=== PATIENT | female | born 1950 | race Caucasian/White ===

== ENCOUNTER → 2017-07-15 | Outpatient (CLI) | payer MEDICARE, OTHER ==
[~2017-07-15] MED LIST: ALLO100T PO; ASP81TEC PO; FOSI40TA PO; FOSI40TA2 PO; HCT25T PO; HUM100VI; HUM100VI14 SC; HYDR-3454 PO; INSU100C4 SQ; INSU100V5 SQ; LISI40TA PO; METF-380 PO; MULT-192 PO; OMEG-160 PO; OMEG1CAP97 PO; PARO10TA3 PO; SIMV40TA2 PO; [UNRECOGNIZED DRUG - CODE] PO
== END ==
LOC: CARD 11:44
PROVIDERS: ATTEND Nurse Practitioner Family
DX: R01.1 Cardiac murmur, unspecified (principal); I07.1 Rheumatic tricuspid insufficiency
CPT/HCPCS: 93306

== ENCOUNTER 2022-04-07 04:55 | Emergency (ER) | payer MEDICARE, OTHER ==
[~2022-04-07] VITALS: Ht 170 cm; Wt 84.0 kg
[~2022-04-07 04:55] MED LIST changes: +ALIVE WOMEN'S1 EACH PO; -FOSI40TA2 PO; +FOSI40TA65 PO; -HYDR-3454 PO; +HYDR-3455 PO; -LISI40TA PO; +LISI40TA9 PO; -[UNRECOGNIZED DRUG - CODE] PO
[2022-04-07] MEDS ORDERED: FOSINOPRIL (05:04)
[2022-04-07] MEDS ORDERED: FURO40TA4 (05:04)
[2022-04-07] MEDS ORDERED: SIMV40TA25 (05:04)
[2022-04-07] MEDS ORDERED: POTASSIUM (05:04)
[2022-04-07] MEDS ORDERED: INSU100I29 (05:04)
[2022-04-07] MEDS ORDERED: VALS160T29 (05:04)
--- NOTE | 2022-04-07 05:15 | ED Cardiac General ---
History of Present Illness General Chief Complaint: Cardiac/General Problems Stated Complaint: IRR HEART RATE Source: patient Exam Limitations: no limitations History of Present Illness Date Seen by Provider: Apr 07, 2022 Time Seen by Provider: 04:59 Initial Comments 71-year-old female with past medical history of diabetes and hypertension most notably coming in due to chest discomfort this been going on for couple of weeks, but now feeling like her heart is "pounding really hard". She denies any real chest pain, shortness of breath, cough, focal weakness or numbness, head ache, vision changes, or any other concerns. She does state her temperature was slightly elevated last night to 100.1 F. She states that she has had some lower extremity swelling for which her PCP started her on Lasix recently which has helped. Denies any redness in her lower extremities or pain. Denies any prior history of DVT or PE, no recent surgery, does not take any hormones, no hemoptysis. Allergies and Home Medications Allergies Coded Allergies: No Known Drug Allergies (Verified Allergy, Unknown, 10/20/08) Patient Home Medication List Home Medication List Reviewed: Yes Allopurinol (Allopurinol) 100 Mg Tablet, 100 MG PO DAILY PRN for GOUT PAIN, (Reported) Entered as Reported by: LINA GARCIA on 09/28/15 1405 Aspirin (Aspirin Ec 81 Mg) 81 Mg Tabec, 81 MG PO HS, (Reported) Entered as Reported by: ENRIQUE JOAQUIN on 10/20/08 1420 Fosinopril Sodium (Fosinopril Sodium) 40 Mg Tablet, 40 MG PO DAILY, (Reported) Entered as Reported by: LINA GARCIA on 09/28/15 1400 Furosemide (Furosemide) 40 Mg Tablet, (Reported) Entered as Reported by: ZARA JUNG on 04/07/22 0504 Last Action: New Order Hydrochlorothiazide (Hctz) 25 Mg Tab, 25 MG PO DAILY, (Reported) Entered as Reported by: ENRIQUE JOAQUIN on 10/20/08 141 Hydrocodone/Acetaminophen (Vicodin 5-300 mg Tablet) 1 Each Tablet, 1 EACH PO Q4H PRN for PAIN Prescribed by: ANDREA DAS on 09/28/152058 Insulin Detemir (Levemir Flextouch) 100 Unit/Ml (3 Ml) Insuln.pen, (Reported) Entered as Reported by: ZARA JUNG on 04/07/22503 Last Action: New Order Insulin Determir (Levemir) 1,000 Units/10 Ml Soln, 50 UNITS SQ HS, (Reported) Entered as Reported by: HARDEEP MULTANI on 09/22/15 152 Insulin Determir (Levemir) 1,000 Units/10 Ml Soln, 23 UNITS SQ DAILY, (Reported) Entered as Reported by: HARDEEP MULTANI on 09/22/15 152 Magnesium Oxide (Magnesium Oxide) 250 Mg Tablet, 250 MG PO QID Prescribed by: TIFFANY VICKERS on 04/07/22 0602 Metformin Hcl (Metformin 1000 Mg) 1,000 Mg Tablet, 1,000 MG PO BID, (Reported) Entered as Reported by: ENRIQUE JOAQUIN on 10/20/08 1420 Multivit-Min/FA/Herbal No.245 (Alive Women's Gummy Vitamins) 1 Each Tab.chew, 1 TAB PO DAILY, (Reported) Entered as Reported by: LINA GARCIA on 09/28/15 1400 [place]-3/Dha/Epa/Fish Oil (Fish Oil 1,000 mg Softgel) 1 Each Capsule, 1,000 MG PO DAILY, (Reported) Entered as Reported by: LINA GARCIA on 09/28/15 1400 Paroxetine HCl (Paroxetine HCl) 10 Mg Tablet, 10 MG PO DAILY, (Reported) Entered as Reported by: LINA GARCIA on 09/28/15 1400 Simvastatin (Zocor) 40 Mg Tablet, 40 MG PO DAILY, (Reported) Entered as Reported by: ENRIQUE JOAQUIN on 10/20/08 1419 Simvastatin (Simvastatin) 40 Mg Tablet, (Reported) Entered as Reported by: ZARA JUNG on 04/07/22503 Last Action: New Order Valsartan (Valsartan) 160 Mg Tablet, (Reported) Entered as Reported by: ZARA JUNG on 04/07/22503 Last Action: New Order [Fosinopril] , (Reported) Entered as Reported by: ZARA JUNG on 04/07/22503 Last Action: New Order [Potassium] , (Reported) Entered as Reported by: ZARA JUNG on 04/07/22503 Last Action: New Order Review of Systems Review of Systems Constitutional: chills EENTM: No Blurred Vision Respiratory: Denies Cough Cardiovascular: Irregular Heart Rate Gastrointestinal: No Symptoms Reported Genitourinary: No Symptoms Reported Musculoskeletal: no symptoms reported Skin: no symptoms reported Psychiatric/Neurological: No Symptoms Reported Endocrine: No Symptoms Reported Hematologic/Lymphatic: No Symptoms Reported Past Bkplfmi-Gbcsbr-Mbolux Hx Patient Social History Tobacco Use?: No Past Medical History Reproductive Disorders: No HIV/AIDS: No Arthritis Diabetes, Insulin dep Breast Adverse Reaction/Blood Tranf: No Family Medical History Diabetes mellitus 19 MOTHER G8 SISTER FH: COPD (chronic obstructive pulmonary disease) 19 FATHER FH: breast cancer 19 MOTHER FH: stroke 19 MOTHER Hypertension 19 MOTHER G8 SISTER Myocardial infarction 19 MOTHER (open heart sx) G8 SISTER (open heart sx) Physical Exam Vital Signs Vital Signs - First Documented 04/07/22 05:05 Temp 35.0 Pulse 85 Resp 17 B/P (MAP) 203/85 (124) Pulse Ox 98 O2 Delivery Room Air Capillary Refill : Height, Weight, BMI Height: 5'7.00" Weight: 184lbs. 0.0oz. 83.682707tt; 30.62 BMI Method: General Appearance: No Apparent Distress, WD/WN HEENT: PERRL/EOMI, Normal ENT Inspection, Pharynx Normal Neck: Full Range of Motion, Normal Inspection, Non Tender, Supple Respiratory: Chest Non Tender, Lungs Clear, Normal Breath Sounds, No Accessory Muscle Use, No Respiratory Distress Cardiovascular: Regular Rate, Rhythm, Normal Peripheral Pulses Gastrointestinal: Normal Bowel Sounds, Non Tender, Soft; No Distended, No Guarding Extremity: Normal Capillary Refill, Normal Inspection, Normal Range of Motion, Non Tender, No Calf Tenderness, Pedal Edema (Trace) Neurologic/Psychiatric: Alert, No Motor/Sensory Deficits, Normal Mood/Affect Skin: Normal Color, Warm/Dry Lymphatic: No Adenopathy Progress/Results/Core Measures Results/Orders Lab Results Laboratory Tests Test 04/07/22 05:18 Range/Units White Blood Count 8.3 4.3-11.0 10^3/uL Red Blood Count 4.08 3.80-5.11 10^6/uL Hemoglobin 12.4 11.5-16.0 g/dL Hematocrit 37 35-52 % Mean Corpuscular Volume 90 80-99 fL Mean Corpuscular Hemoglobin 30 25-34 pg Mean Corpuscular Hemoglobin Concent 34 32-36 g/dL Red Cell Distribution Width 13.1 10.0-14.5 % Platelet Count 164 130-400 10^3/uL Mean Platelet Volume 10.7 9.0-12.2 fL Immature Granulocyte % (Auto) 1 % Neutrophils (%) (Auto) 63 42-75 % Lymphocytes (%) (Auto) 25 12-44 % Monocytes (%) (Auto) 10 0-12 % Eosinophils (%) (Auto) 1 0-10 % Basophils (%) (Auto) 0 0-10 % Neutrophils # (Auto) 5.3 1.8-7.8 10^3/uL Lymphocytes # (Auto) 2.1 1.0-4.0 10^3/uL Monocytes # (Auto) 0.8 0.0-1.0 10^3/uL Eosinophils # (Auto) 0.1 0.0-0.3 10^3/uL Basophils # (Auto) 0.0 0.0-0.1 10^3/uL Immature Granulocyte # (Auto) 0.0 0.0-0.1 10^3/uL Prothrombin Time 12.8 12.2-14.7 SEC INR Comment 0.9 0.8-1.4 Activated Partial Thromboplast Time 40 H 24-35 SEC Sodium Level 139 135-145 MMOL/L Potassium Level 3.8 3.6-5.0 MMOL/L Chloride Level 99 98-107 MMOL/L Carbon Dioxide Level 26 21-32 MMOL/L Anion Gap 14 5-14 MMOL/L Blood Urea Nitrogen 27 H 7-18 MG/DL Creatinine 1.35 H 0.60-1.30 MG/DL Estimat Glomerular Filtration Rate 42 BUN/Creatinine Ratio 20 Glucose Level 105 70-105 MG/DL Calcium Level 9.6 8.5-10.1 MG/DL Corrected Calcium 9.5 8.5-10.1 MG/DL Magnesium Level 1.4 L 1.6-2.4 MG/DL Total Bilirubin 0.5 0.1-1.0 MG/DL Aspartate Amino Transf (AST/SGOT) 22 5-34 U/L Alanine Aminotransferase (ALT/SGPT) 26 0-55 U/L Alkaline Phosphatase 66 40-136 U/L Troponin I < 0.028 <0.028 NG/ML B-Type Natriuretic Peptide 22.8 <100.0 PG/ML Total Protein 7.3 6.4-8.2 GM/DL Albumin 4.1 3.2-4.5 GM/DL Lipase 47 8-78 U/L Influenza Type A (RT-PCR) Not Detected Not Detecte Influenza Type B (RT-PCR) Not Detected Not Detecte SARS-CoV-2 RNA (RT-PCR) Detected H Not Detecte My Orders Orders - TIFFANY VICKERS MD Ekg Tracing (04/07/22 04:58) Cbc With Automated Diff (04/07/22 05:12) Magnesium (04/07/22 05:12) Chest 1 View, Ap/Pa Only (04/07/22 05:12) Ekg Tracing (04/07/22 05:12) Comprehensive Metabolic Panel (04/07/22 05:12) Protime With Inr (04/07/22 05:12) Partial Thromboplastin Time (04/07/22 05:12) O2 (04/07/22 05:12) Monitor-Rhythm Ecg Trace Only (04/07/22 05:12) Ed Iv/Invasive Line Start (04/07/22 05:12) Lipase (04/07/22 05:12) Bnp [place] (04/07/22 05:12) Troponin I [place] (04/07/22 05:12) Influenza A And B By Pcr (04/07/22 05:15) Covid 19 Inhouse Test (04/07/22 05:15) Vital Signs/I&O 04/07/22 05:05 Temp 35.0 Pulse 85 Resp 17 B/P (MAP) 203/85 (124) Pulse Ox 98 O2 Delivery Room Air Progress Progress Note : Progress Note 71-year-old female presenting for vague symptoms, most notably like her heart is beating fast as well as fever last night. ABCs were intact and vitals were stable on presentation. EKG ordered and interpreted by me showing no acute ischemic changes. Chest x-ray ordered and interpreted by me showing normal cardiac silhouette, no pneumonia, no pneumothorax. An IV was placed and basic labs were obtained including cardiac biomarkers. Troponin is negative and given he is having symptoms for quite some time, very unlikely to be ACS related. No clinical signs of a DVT on exam, is not tachycardic, is overall low risk for PE. Further work-up not ordered to rule out PE given it is very unlikely. Flu and COVID testing sent and the COVID test was positive. She also has been on Lasix and her magnesium is slightly low at 1.4. We will start her on some oral supplementation at home. I believe she is otherwise stable for discharge with outpatient follow-up. She was sent home with strict return precautions. Initial ECG Impression Date: Apr 07, 2022 Initial ECG Impression Time: 05:07 Initial ECG Rate: 77 Initial ECG Rhythm: Normal Sinus Comment Narrow QRS, normal axis, no significant ST changes or T wave abnormalities, LVH by aVL criteria Diagnostic Imaging Diagonstic Imaging: Xray (chest) Departure Impression Primary Impression: COVID-19 Additional Impression: Hypomagnesemia Disposition: 01 HOME, SELF-CARE Condition: Stable Departure-Patient Inst. Decision time for Depature: 05:58 Referrals: RICARDO HEREDIA MD (PCP/Family) Primary Care Physician Patient Instructions: COVID-19 ED Add. Discharge Instructions: You do have COVID, please isolate yourself for the next 5 days, and then you can wear a mask for the 5 days after that. Take tylenol as needed for fever. Your magnesium is slightly slow so you will be on a supplement 4 times a day for the next week. This may cause some loose stools. Scripts Magnesium Oxide (Magnesium Oxide) 250 Mg Tablet 250 MG PO QID for 7 Days, #28 TAB Prov: TIFFANY VICKERS MD 04/07/22 TIFFANY VICKERS MD Apr 07, 2022 05:15
[2022-04-07 05:29] LABS: BASOPHILS % (AUTO) 0 % (0-10); EOSINOPHILS # (AUTO) 0.1 10^3/uL (0.0-0.3); EOSINOPHILS % (AUTO) 1 % (0-10); HEMATOCRIT 37 % (35-52); HEMOGLOBIN 12.4 g/dL (11.5-16.0); LYMPHOCYTES # (AUTO) 2.1 10^3/uL (1.0-4.0); LYMPHOCYTES % (AUTO) 25 % (12-44); MEAN CORPUSCULAR HEMOGLOBIN 30 pg (25-34); MEAN CORPUSCULAR HGB CONC 34 g/dL (32-36); MEAN CORPUSCULAR VOLUME 90 fL (80-99); MEAN PLATELET VOLUME 10.7 fL (9.0-12.2); MONOCYTES # (AUTO) 0.8 10^3/uL (0.0-1.0); MONOCYTES % (AUTO) 10 % (0-12); NEUTROPHILS # (AUTO) 5.3 10^3/uL (1.8-7.8); NEUTROPHILS % (AUTO) 63 % (42-75); PLATELET COUNT 164 10^3/uL (130-400); WHITE BLOOD COUNT 8.3 10^3/uL (4.3-11.0)
[2022-04-07 05:35] LABS: ALBUMIN 4.1 GM/DL (3.2-4.5); POTASSIUM 3.8 MMOL/L (3.6-5.0)
[2022-04-07 05:36] LABS: CALCIUM 9.6 MG/DL (8.5-10.1)
[2022-04-07 05:38] LABS: TOTAL PROTEIN 7.3 GM/DL (6.4-8.2)
[2022-04-07 05:39] LABS: BILIRUBIN,TOTAL 0.5 MG/DL (0.1-1.0)
[2022-04-07 05:41] LABS: CREATININE SERUM 1.35 MG/DL (0.60-1.30)
[2022-04-07 05:44] LABS: MAGNESIUM 1.4 MG/DL (1.6-2.4)
[2022-04-07 05:48] LABS: INR 0.9 (0.8-1.4); PROTHROMBIN TIME PATIENT 12.8 SEC (12.2-14.7)
[2022-04-07] MEDS ORDERED: MAGN250T35 PO ×2 (06:02→06:08)
[2022-04-07 06:05] VITALS: BP 178/73
--- NOTE | 2022-04-07 06:10 | Diagnostic Imaging Report ---
INDICATION: Fever, chills, and palpitations. FINDINGS: The lungs are clear. There is no failure, effusion or pneumothorax. No free air beneath the diaphragms. IMPRESSION: Normal upright frontal chest Dictated by: Dictated on workstation # [id number]
== END 2022-04-07 06:08 | disposition home or self-care (01) ==
LOC: EDUNIT# 04:55 → ER 04:57
DX: U07.1 COVID-19 (principal); E83.42 Hypomagnesemia
CPT/HCPCS: 36415; 71045; 80053; 83690; 83735; 83880; 84484; 85025; 85610; 85730; 87636; 93005; 93041

== ENCOUNTER 2022-04-26 09:07 | Emergency (ER) | payer MEDICARE, OTHER ==
[~2022-04-26] VITALS: Ht 170.1 cm; Wt 84.0 kg
[~2022-04-26 09:07] MED LIST changes: +FOSINOPRIL; +FURO40TA4; +INSU100I29; +MAGN250T35 PO; +POTASSIUM; +SIMV40TA25; +VALS160T29
--- NOTE | 2022-04-26 09:42 | ED EENT ---
History of Present Illness General Stated Complaint: NOSEBLEEDS Source: patient History of Present Illness Date Seen by Provider: Apr 26, 2022 Time Seen by Provider: 09:30 Initial Comments PT ARRIVES VIA POV FROM HOME C/O NOSEBLEEDING FROM LEFT NARE SINCE YESTERDAY NO HISTORY OF NOSEBLEEDS PT IS ON 81 MG ASPIRIN, NO OTHER BLOOD THINNERS SHE HAD COVID 3 WEEKS AGO, AND HAS HAD SOME RESIDUAL NASAL CONGESTION SINCE THEN NO SINUS PAIN PT HAS HISTORY OF HTN, BREAST CANCER, GERD. SWITCHED BP MEDICATION 6 WEEKS AGO, TO VALSARTAN AND LASIX + KCL PT STOPPED LASIX AND KCL--DIDN'T LIKE THE WAY IT MADE HER FEEL PCP; DR. HEREDIA Allergies and Home Medications Allergies Coded Allergies: No Known Drug Allergies (Verified , 10/20/08) Patient Home Medication List Allopurinol (Allopurinol) 100 Mg Tablet, 100 MG PO DAILY PRN for GOUT PAIN, (Reported) Entered as Reported by: LINA GARCIA on 09/28/15 1405 Aspirin (Aspirin Ec 81 Mg) 81 Mg Tabec, 81 MG PO HS, (Reported) Entered as Reported by: ENRIQUE JOAQUIN on 10/20/08 1420 Cefuroxime Axetil (Cefuroxime) 500 Mg Tablet, 500 MG PO BID Prescribed by: SIS OJEDA on 04/26/22 1137 Fosinopril Sodium (Fosinopril Sodium) 40 Mg Tablet, 40 MG PO DAILY, (Reported) Entered as Reported by: LINA GARCIA on 09/28/15 1400 Furosemide (Furosemide) 40 Mg Tablet, (Reported) Entered as Reported by: ZARA JUNG on 04/07/22 0504 Hydrochlorothiazide (Hctz) 25 Mg Tab, 25 MG PO DAILY, (Reported) Entered as Reported by: ENRIQUE JOAQUIN on 10/20/08 1419 Hydrocodone/Acetaminophen (Vicodin 5-300 mg Tablet) 1 Each Tablet, 1 EACH PO Q4H PRN for PAIN Prescribed by: ANDREA DAS on 09/28/152058 Insulin Detemir (Levemir Flextouch) 100 Unit/Ml (3 Ml) Insuln.pen, (Reported) Entered as Reported by: ZARA JUNG on 04/07/22 0504 Insulin Determir (Levemir) 1,000 Units/10 Ml Soln, 50 UNITS SQ HS, (Reported) Entered as Reported by: HARDEEP MULTANI on 09/22/15 1522 Insulin Determir (Levemir) 1,000 Units/10 Ml Soln, 23 UNITS SQ DAILY, (Reported) Entered as Reported by: HARDEEP MULTANI on 09/22/15 1522 Magnesium Oxide (Magnesium Oxide) 250 Mg Tablet, 250 MG PO QID Prescribed by: TIFFANY VICKERS on 04/07/22 0608 Metformin Hcl (Metformin 1000 Mg) 1,000 Mg Tablet, 1,000 MG PO BID, (Reported) Entered as Reported by: ENRIQUE JOAQUIN on 10/20/08 1420 Multivit-Min/FA/Herbal No.245 (Alive Women's Gummy Vitamins) 1 Each Tab.chew, 1 TAB PO DAILY, (Reported) Entered as Reported by: LINA GARCIA on 09/28/15 1400 [place]-3/Dha/Epa/Fish Oil (Fish Oil 1,000 mg Softgel) 1 Each Capsule, 1,000 MG PO DAILY, (Reported) Entered as Reported by: LINA GARCIA on 09/28/15 1400 Paroxetine HCl (Paroxetine HCl) 10 Mg Tablet, 10 MG PO DAILY, (Reported) Entered as Reported by: LINA GARCIA on 09/28/15 1400 Simvastatin (Zocor) 40 Mg Tablet, 40 MG PO DAILY, (Reported) Entered as Reported by: ENRIQUE JOAQUIN on 10/20/08 1419 Simvastatin (Simvastatin) 40 Mg Tablet, (Reported) Entered as Reported by: ZARA JUNG on 04/07/22 050 Valsartan (Valsartan) 160 Mg Tablet, (Reported) Entered as Reported by: ZARA JUNG on 04/07/22 050 [Fosinopril] , (Reported) Entered as Reported by: ZARA JUNG on 04/07/22 050 [Potassium] , (Reported) Entered as Reported by: ZARA JUNG on 04/07/22 050 Review of Systems Review of Systems Constitutional: no symptoms reported Nose: see HPI Mouth: no symptoms reported Throat: no symptoms reported Respiratory: no symptoms reported Gastrointestinal: no symptoms reported Musculoskeletal: no symptoms reported Skin: no symptoms reported Neurological: No Symptoms Reported Hematologic/Lymphatic: See HPI; Denies Anemia, Denies Blood Clots, Denies Easy Bleeding, Denies Easy Bruising, Denies Swollen Glands Immunological/Allergic: no symptoms reported Past Nzjdijl-Eewmfb-Ogjzjb Hx Patient Social History Tobacco Use?: No Substance use?: No Alcohol Use?: No Immunizations Up To Date First/Initial COVID19 Vaccinat: X3 Past Medical History Surgery/Hospitalization HX: BILATERAL MASTECTOMY, NECK, APPY, PK, BREAST CA, LYMPHEDEMA, GOUT, DM, HTN, GALLSTONES, RETINOPATHY, HEART MURMER Surgeries: Yes Appendectomy, Breast, Gallbladder Respiratory: No Cardiac: Yes Heart Murmur, Hypertension Neurological: No Reproductive Disorders: No HIV/AIDS: No Genitourinary: No Gastrointestinal: Yes Gastroesophageal Reflux Musculoskeletal: Yes Arthritis, Gout Endocrine: Yes Diabetes, Insulin dep HEENT: Yes (RETINOPATHY) Cancer: Yes Breast Did You Recieve Any Treatments: Yes What Type of Treatment Did You: Surgical Intervention Psychosocial: No Integumentary: No Blood Disorders: No Adverse Reaction/Blood Tranf: No Family Medical History Diabetes mellitus 19 MOTHER G8 SISTER FH: COPD (chronic obstructive pulmonary disease) 19 FATHER FH: breast cancer 19 MOTHER FH: stroke 19 MOTHER Hypertension 19 MOTHER G8 SISTER Myocardial infarction 19 MOTHER (open heart sx) G8 SISTER (open heart sx) Physical Exam Vital Signs Vital Signs - First Documented 04/26/22 09:10 Temp 36.3 Pulse 82 Resp 18 B/P (MAP) 139/89 (106) Pulse Ox 99 Height, Weight, BMI Height: 5'7.00" Weight: 184lbs. 0.0oz. 83.256704dg; 29.00 BMI Method: General Appearance: WD/WN, no apparent distress Nose: active bleeding (FROM LEFT NARE) Mouth/Throat: normal mouth inspection, pharynx normal, other (NO BLOOD IN P OSTERIOR PHARYNX) Neck: normal inspection Cardiovascular: regular rate, rhythm Respiratory: normal breath sounds Neurologic/Psychiatric: physical aerodynamicist II-XII nml as tested, no motor/sensory deficits, alert, oriented x 3 Skin: normal color, warm/dry Procedures/Interventions Nasal : Nasal Location: Right Clots Cleared from Nasal: Patient Blowing Inspection with: Otoscope Nasal Procedures: Rapid Rhino Progress 5.5 CM RAPID RHINO INSERTED, WITH CONTROL OF BLEEDING PT OBSERVED IN ER, NO FURTHER BLEEDING AND NO BLOOD IN POSTERIOR PHARYNX Progress/Results/Core Measures Results/Orders Lab Results Laboratory Tests Test 04/26/22 09:35 Range/Units White Blood Count 6.7 4.3-11.0 10^3/uL Red Blood Count 3.67 L 3.80-5.11 10^6/uL Hemoglobin 11.0 L 11.5-16.0 g/dL Hematocrit 33 L 35-52 % Mean Corpuscular Volume 90 80-99 fL Mean Corpuscular Hemoglobin 30 25-34 pg Mean Corpuscular Hemoglobin Concent 33 32-36 g/dL Red Cell Distribution Width 13.7 10.0-14.5 % Platelet Count 173 130-400 10^3/uL Mean Platelet Volume 10.7 9.0-12.2 fL Immature Granulocyte % (Auto) 0 % Neutrophils (%) (Auto) 76 H 42-75 % Lymphocytes (%) (Auto) 17 12-44 % Monocytes (%) (Auto) 6 0-12 % Eosinophils (%) (Auto) 0 0-10 % Basophils (%) (Auto) 0 0-10 % Neutrophils # (Auto) 5.1 1.8-7.8 10^3/uL Lymphocytes # (Auto) 1.1 1.0-4.0 10^3/uL Monocytes # (Auto) 0.4 0.0-1.0 10^3/uL Eosinophils # (Auto) 0.0 0.0-0.3 10^3/uL Basophils # (Auto) 0.0 0.0-0.1 10^3/uL Immature Granulocyte # (Auto) 0.0 0.0-0.1 10^3/uL Percent Immature Platelet Fraction 3.6 0.0-7.6 % Prothrombin Time 13.6 12.2-14.7 SEC INR Comment 1.0 0.8-1.4 Activated Partial Thromboplast Time 24 24-35 SEC Sodium Level 141 135-145 MMOL/L Potassium Level 4.2 3.6-5.0 MMOL/L Chloride Level 104 98-107 MMOL/L Carbon Dioxide Level 23 21-32 MMOL/L Anion Gap 14 5-14 MMOL/L Blood Urea Nitrogen 25 H 7-18 MG/DL Creatinine 0.93 0.60-1.30 MG/DL Estimat Glomerular Filtration Rate 66 BUN/Creatinine Ratio 27 Glucose Level 155 H 70-105 MG/DL Calcium Level 9.3 8.5-10.1 MG/DL Corrected Calcium 9.5 8.5-10.1 MG/DL Total Bilirubin 0.4 0.1-1.0 MG/DL Aspartate Amino Transf (AST/SGOT) 30 5-34 U/L Alanine Aminotransferase (ALT/SGPT) 23 0-55 U/L Alkaline Phosphatase 71 40-136 U/L Total Protein 7.2 6.4-8.2 GM/DL Albumin 3.8 3.2-4.5 GM/DL My Orders Orders - SIS OJEDA DO Cbc With Automated Diff (04/26/22 09:29) Comprehensive Metabolic Panel (04/26/22 09:29) Protime With Inr (04/26/22 09:29) Partial Thromboplastin Time (04/26/22 09:29) Ed Iv/Invasive Line Start (04/26/22 09:29) Monitor-Rhythm Ecg Trace Only (04/26/22 09:29) Hydralazine Injection (Apresoline Inject (04/26/22 10:45) Clonidine Tablet (Catapres Tablet) (04/26/22 11:15) Medications Given in ED Current Medications Medications Dose Ordered Sig/Dusty Route Start Time Stop Time Status Last Admin Dose Admin Clonidine HCl 0.1 mg ONCE ONCE PO 04/26/22 11:15 04/26/22 11:16 DC 04/26/22 11:14 0.1 MG Vital Signs/I&O 04/26/22 09:10 Temp 36.3 Pulse 82 Resp 18 B/P (MAP) 139/89 (106) Pulse Ox 99 Progress Progress Note : Progress Note BP REMAINS ELEVATED, GIVEN CLONIDINE PRIOR TO DISMISSAL, PT STATES SHE HAS BEEN USING ALOT OF AFRIN EVERY DAY, SINCE AROUND Departure Impression Primary Impression: Epistaxis Additional Impression: Uncontrolled hypertension Disposition: HOME, SELF-CARE Condition: Improved Departure-Patient Inst. Referrals: MARGO LAM MD, HOLLY A MD (PCP/Family) Primary Care Physician Patient Instructions: Nosebleeds ED, DASH Diet, High Blood Pressure (DC), Humidifiers Add. Discharge Instructions: LEAVE NASAL PACKING IN PLACE DO NOT BLOW OR RUB NOSE YOU MAY TAKE TYLENOL NEEDED FOR PAIN HUMIDIFY THE AIR IN YOUR HOME. FOLLOW UP WITH DR. LAM, ENT, FOR YOUR NOSEBLEED--CALL HIS OFFICE TODAY TO SCHEDULE A FOLLOW UP APPOINTMENT FOLLOW UP WITH YOUR PRIMARY CARE PHYSICIAN FOR FURTHER TREATMENT OF HIGH BLOOD PRESSURE--CALL TODAY TO SCHEDULE A FOLLOW UP APPOINTMENT. Scripts Cefuroxime Axetil (Cefuroxime) 500 Mg Tablet 500 MG PO BID, #20 TAB Prov: SIS OJEDA DO 04/26/22 SIS OJEDA DO Apr 26, 2022 09:42
[2022-04-26 09:48] LABS: BASOPHILS % (AUTO) 0 % (0-10); EOSINOPHILS % (AUTO) 0 % (0-10); LYMPHOCYTES # (AUTO) 1.1 10^3/uL (1.0-4.0)
[2022-04-26 09:50] LABS: HEMATOCRIT 33 % (35-52); LYMPHOCYTES % (AUTO) 17 % (12-44); MEAN CORPUSCULAR HEMOGLOBIN 30 pg (25-34); MEAN CORPUSCULAR HGB CONC 33 g/dL (32-36); MEAN CORPUSCULAR VOLUME 90 fL (80-99); MEAN PLATELET VOLUME 10.7 fL (9.0-12.2); MONOCYTES # (AUTO) 0.4 10^3/uL (0.0-1.0); MONOCYTES % (AUTO) 6 % (0-12); NEUTROPHILS # (AUTO) 5.1 10^3/uL (1.8-7.8); NEUTROPHILS % (AUTO) 76 % (42-75); PLATELET COUNT 173 10^3/uL (130-400); WHITE BLOOD COUNT 6.7 10^3/uL (4.3-11.0)
[2022-04-26 10:15] LABS: ALBUMIN 3.8 GM/DL (3.2-4.5); BILIRUBIN,TOTAL 0.4 MG/DL (0.1-1.0); CALCIUM 9.3 MG/DL (8.5-10.1); CREATININE SERUM 0.93 MG/DL (0.60-1.30); POTASSIUM 4.2 MMOL/L (3.6-5.0); TOTAL PROTEIN 7.2 GM/DL (6.4-8.2)
[2022-04-26 10:24] LABS: PROTHROMBIN TIME PATIENT 13.6 SEC (12.2-14.7)
[2022-04-26] MEDS ORDERED: hydrALAZINE (APESOLINE) 20 MG/ML VIAL IV ONE (10:45)
[2022-04-26] MEDS: cloNIDine 0.1 MG (CATAPRES) TAB PO ONE (11:14)
[2022-04-26] MEDS ORDERED: CEFU500T63 PO (11:37)
[2022-04-26 12:05] VITALS: BP 178/79
== END 2022-04-26 12:05 | disposition home or self-care (01) ==
LOC: EDUNIT# 09:07 → ER 09:09
DX: R04.0 Epistaxis (principal); I10 Essential (primary) hypertension; E11.9 Type 2 diabetes mellitus without complications; Z79.4 Long term (current) use of insulin; Z86.16 Personal history of COVID-19; Z79.82 Long term (current) use of aspirin
CPT/HCPCS: 30901; 36415; 80053; 85025; 85610; 85730; 93041

== ENCOUNTER 2022-05-21 11:10 | Emergency (ER) | payer MEDICARE, OTHER ==
[~2022-05-21] VITALS: Ht 170.2 cm; Wt 85.3 kg
[~2022-05-21 11:10] MED LIST changes: -AMLO-251 PO
--- NOTE | 2022-05-21 11:31 | ED General ---
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 She had a blood pressure as high as 228/84. She had for blood pressure reading and was sent to the ER for elevated blood pressure. Only complaint is that she has had intermittent shakiness. She believes this is secondary to anxiety. She also reports when she goes to doctors offices her blood pressure typically reads high. She had an increase of her valsartan to 320 mg daily around 3 weeks ago. She is a type II diabetic. She she denies history of coronary artery disease, COPD or asthma. She was of being evaluated for heart murmur with cardiology. She denies weakness, short of breath, headache, dizziness or lightheadedness. Allergies and Home Medications Allergies Coded Allergies: No Known Drug Allergies (Verified , 10/20/08) Patient Home Medication List Home Medication List Reviewed: Yes Allopurinol (Allopurinol) 100 Mg Tablet, 100 MG PO DAILY PRN for GOUT PAIN, (Reported) Entered as Reported by: LINA GARCIA on 09/28/15 1405 Amlodipine Besylate (Amlodipine Besylate) 10 Mg Tablet, 10 MG PO DAILY Prescribed by: MELANI RODRIGUEZ on 05/21/22 1353 Aspirin (Aspirin Ec 81 Mg) 81 Mg Tabec, 81 MG PO HS, (Reported) Entered as Reported by: ENRIQUE JOAQUIN on 10/20/08 1420 Cefuroxime Axetil (Cefuroxime) 500 Mg Tablet, 500 MG PO BID Prescribed by: SIS OJEDA on 04/26/22 1137 Fosinopril Sodium (Fosinopril Sodium) 40 Mg Tablet, 40 MG PO DAILY, (Reported) Entered as Reported by: LINA GARCIA on 09/28/15 1400 Furosemide (Furosemide) 40 Mg Tablet, (Reported) Entered as Reported by: ZARA JUNG on 04/07/22 0504 Hydrochlorothiazide (Hctz) 25 Mg Tab, 25 MG PO DAILY, (Reported) Entered as Reported by: ENRIQUE JOAQUIN on 10/20/08 1419 Hydrocodone/Acetaminophen (Vicodin 5-300 mg Tablet) 1 Each Tablet, 1 EACH PO Q4H PRN for PAIN Prescribed by: ANDREA DAS on 09/28/152058 Insulin Detemir (Levemir Flextouch) 100 Unit/Ml (3 Ml) Insuln.pen, (Reported) Entered as Reported by: ZARA JUNG on 04/07/22 050 Insulin Determir (Levemir) 1,000 Units/10 Ml Soln, 50 UNITS SQ HS, (Reported) Entered as Reported by: HARDEEP MULTANI on 09/22/15 152 Insulin Determir (Levemir) 1,000 Units/10 Ml Soln, 23 UNITS SQ DAILY, (Reported) Entered as Reported by: HARDEEP MULTANI on 09/22/15 152 Magnesium Oxide (Magnesium Oxide) 250 Mg Tablet, 250 MG PO QID Prescribed by: TIFFANY VICKERS on 04/07/22 0608 Metformin Hcl (Metformin 1000 Mg) 1,000 Mg Tablet, 1,000 MG PO BID, (Reported) Entered as Reported by: ENRIQUE JOAQUIN on 10/20/08 1420 Multivit-Min/FA/Herbal No.245 (Alive Women's Gummy Vitamins) 1 Each Tab.chew, 1 TAB PO DAILY, (Reported) Entered as Reported by: LINA GARCIA on 09/28/15 1400 [place]-3/Dha/Epa/Fish Oil (Fish Oil 1,000 mg Softgel) 1 Each Capsule, 1,000 MG PO DAILY, (Reported) Entered as Reported by: LINA GARCIA on 09/28/15 1400 Paroxetine HCl (Paroxetine HCl) 10 Mg Tablet, 10 MG PO DAILY, (Reported) Entered as Reported by: LINA GARCIA on 09/28/15 1400 Simvastatin (Zocor) 40 Mg Tablet, 40 MG PO DAILY, (Reported) Entered as Reported by: ENRIQUE JOAQUIN on 10/20/08 1419 Simvastatin (Simvastatin) 40 Mg Tablet, (Reported) Entered as Reported by: ZARA JUNG on 04/07/22 050 Valsartan (Valsartan) 160 Mg Tablet, (Reported) Entered as Reported by: ZARA JUNG on 04/07/22 050 [Fosinopril] , (Reported) Entered as Reported by: ZARA JUNG on 04/07/22 0504 [Potassium] , (Reported) Entered as Reported by: ZARA JUNG on 04/07/224 Review of Systems Review of Systems Constitutional: No chills, No diaphoresis, No fever, No malaise EENTM: No ear pain, No blurred vision, No double vision Respiratory: No cough, No dyspnea on exertion Cardiovascular: No chest pain Gastrointestinal: No abdominal pain, No diarrhea, No nausea, No vomiting Genitourinary: No decreased output, No discharge Musculoskeletal: No back pain, No joint pain Skin: No change in color, No change in hair/nails All Other Systems Reviewed Negative Unless Noted: Yes Past [facility]-[place]vv[facility] Hx Immunizations Up To Date First/Initial COVID19 Vaccinat: 2020 Second COVID19 Vaccination [place]: 2020 Third COVID19 Vaccination Date: 2021 Past Medical History Surgery/Hospitalization HX: BILATERAL MASTECTOMY, NECK, APPY, PK, BREAST CA, LYMPHEDEMA, GOUT, DM, HTN, GALLSTONES, RETINOPATHY, HEART MURMER Surgeries: Yes Appendectomy, Breast, Gallbladder Respiratory: No Cardiac: Yes Heart Murmur, Hypertension Neurological: No Reproductive Disorders: No HIV/AIDS: No Genitourinary: No Gastrointestinal: Yes Gastroesophageal Reflux Musculoskeletal: Yes Arthritis, Gout Endocrine: Yes Diabetes, Insulin dep HEENT: Yes (RETINOPATHY) Cancer: Yes Breast Did You Recieve Any Treatments: Yes What Type of Treatment Did You: Surgical Intervention Psychosocial: No Integumentary: No Blood Disorders: No Adverse Reaction/Blood Tranf: No Family Medical History Diabetes mellitus 19 MOTHER G8 SISTER FH: COPD (chronic obstructive pulmonary disease) 19 FATHER FH: breast cancer 19 MOTHER FH: stroke 19 MOTHER Hypertension 19 MOTHER G8 SISTER Myocardial infarction 19 MOTHER (open heart sx) G8 SISTER (open heart sx) Physical Exam Vital Signs Vital Signs - First Documented 05/21/22 11:15 Temp 36.6 Pulse 72 Resp 18 B/P (MAP) 198/92 (127) Pulse Ox 100 O2 Delivery Room Air Capillary Refill : Height, Weight, BMI Height: 5'7.00" Weight: 184lbs. 0.0oz. 83.353262qc; 29.00 BMI Method: General Appearance: No Apparent Distress, WD/WN Eyes: Bilateral Eye Normal Inspection, Bilateral Eye PERRL, Bilateral Eye EOMI HEENT: PERRL/EOMI, TMs Normal, Normal ENT Inspection, Pharynx Normal Neck: Full Range of Motion, Normal Inspection, Non Tender, Supple Respiratory: Chest Non Tender, Lungs Clear, Normal Breath Sounds, No Accessory Muscle Use, No Respiratory Distress Cardiovascular: Regular Rate, Rhythm, No Edema, No Gallop, No JVD Gastrointestinal: Normal Bowel Sounds, No Organomegaly, No Pulsatile Mass, Non Tender Back: Normal Inspection, No CVA Tenderness Extremity: Normal Capillary Refill, Normal Inspection, Normal Range of Motion Neurologic/Psychiatric: Alert, Oriented x3, No Motor/Sensory Deficits, Normal 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, 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 as Tested Skin: Normal Color, Warm/Dry Progress/Results/Core Measures Suspected Sepsis SIRS Temperature: Pulse: Respiratory Rate: Laboratory Tests 05/21/22 11:45: White Blood Count 8.0 Blood Pressure / Mean: Laboratory Tests 05/21/22 11:45: Creatinine 0.85, Platelet Count 160, Total Bilirubin 0.3 Results/Orders Lab Results Laboratory Tests Test 05/21/22 11:45 05/21/22 13:00 Range/Units White Blood Count 8.0 4.3-11.0 10^3/uL Red Blood Count 3.78 L 3.80-5.11 10^6/uL Hemoglobin 11.2 L 11.5-16.0 g/dL Hematocrit 34 L 35-52 % Mean Corpuscular Volume 91 80-99 fL Mean Corpuscular Hemoglobin 30 25-34 pg Mean Corpuscular Hemoglobin Concent 33 32-36 g/dL Red Cell Distribution Width 13.4 10.0-14.5 % Platelet Count 160 130-400 10^3/uL Mean Platelet Volume 11.1 9.0-12.2 fL Immature Granulocyte % (Auto) 0 % Neutrophils (%) (Auto) 76 H 42-75 % Lymphocytes (%) (Auto) 17 12-44 % Monocytes (%) (Auto) 5 0-12 % Eosinophils (%) (Auto) 1 0-10 % Basophils (%) (Auto) 1 0-10 % Neutrophils # (Auto) 6.1 1.8-7.8 10^3/uL Lymphocytes # (Auto) 1.4 1.0-4.0 10^3/uL Monocytes # (Auto) 0.4 0.0-1.0 10^3/uL Eosinophils # (Auto) 0.1 0.0-0.3 10^3/uL Basophils # (Auto) 0.0 0.0-0.1 10^3/uL Immature Granulocyte # (Auto) 0.0 0.0-0.1 10^3/uL Sodium Level 141 135-145 MMOL/L Potassium Level 4.1 3.6-5.0 MMOL/L Chloride Level 105 98-107 MMOL/L Carbon Dioxide Level 22 21-32 MMOL/L Anion Gap 14 5-14 MMOL/L Blood Urea Nitrogen 17 7-18 MG/DL Creatinine 0.85 0.60-1.30 MG/DL Estimat Glomerular Filtration Rate 74 BUN/Creatinine Ratio 20 Glucose Level 131 H 70-105 MG/DL Calcium Level 9.8 8.5-10.1 MG/DL Corrected Calcium 9.9 8.5-10.1 MG/DL Magnesium Level 1.3 L 1.6-2.4 MG/DL Total Bilirubin 0.3 0.1-1.0 MG/DL Aspartate Amino Transf (AST/SGOT) 24 5-34 U/L Alanine Aminotransferase (ALT/SGPT) 18 0-55 U/L Alkaline Phosphatase 76 40-136 U/L Troponin I < 0.028 <0.028 NG/ML B-Type Natriuretic Peptide 36.1 <100.0 PG/ML Total Protein 7.1 6.4-8.2 GM/DL Albumin 3.9 3.2-4.5 GM/DL Urine Color YELLOW Urine Clarity CLEAR Urine pH 6.0 5-9 Urine Specific [place] 1.010 L 1.016-1.022 Urine Protein 3+ H NEGATIVE Urine Glucose (UA) NEGATIVE NEGATIVE Urine Ketones NEGATIVE NEGATIVE Urine Nitrite NEGATIVE NEGATIVE Urine Bilirubin NEGATIVE NEGATIVE Urine Urobilinogen 0.2 < = 1.0 MG/DL Urine Leukocyte Esterase NEGATIVE NEGATIVE Urine RBC (Auto) TRACE-I H NEGATIVE Urine RBC RARE /HPF Urine WBC RARE /HPF Urine Crystals PRESENT H /LPF Urine Amorphous Sediment RARE FERMIN URATES H /LPF Urine Bacteria NEGATIVE /HPF Urine Casts NONE /LPF Urine Mucus NEGATIVE /LPF Urine Culture Indicated NO My Orders Orders - TIFFANY BUCK Cbc With Automated Diff (05/21/22 11:27) Comprehensive Metabolic Panel (05/21/22 11:27) Troponin I [place] (05/21/22 11:27) Bnp [place] (05/21/22 11:27) Chest 1 View, Ap/Pa Only (05/21/22 11:27) Ekg Tracing (05/21/22 11:27) Hydralazine Injection (Apresoline Inject (05/21/22 12:15) Urinalysis (05/21/22 12:53) Labetalol Injection (Normodyne Injection (05/21/22 13:00) Magnesium (05/21/22 13:13) Magnesium Oxide Tablet (Mag Ox Tablet) (05/21/22 13:45) Magnesium Oxide Tablet (Mag Ox Tablet) (05/21/22 13:41) Amlodipine Tablet (Norvasc Tablet) (05/21/22 14:00) Medications Given in ED Current Medications Medications Dose Ordered Sig/Dusty Route Start Time Stop Time Status Last Admin Dose Admin Amlodipine Besylate 10 mg ONCE ONCE PO 05/21/22 14:00 05/21/22 14:01 DC 05/21/22 13:57 10 MG Hydralazine HCl 10 mg ONCE ONCE IV 05/21/22 12:15 05/21/22 12:16 DC 05/21/22 12:13 10 MG Labetalol HCl 10 mg ONCE ONCE IV 05/21/22 13:00 05/21/22 13:02 DC 05/21/22 13:08 10 MG Magnesium Oxide 400 mg ONCE ONCE PO 05/21/22 13:45 05/21/22 13:46 DC 05/21/22 13:42 400 MG Vital Signs/I&O 05/21/22 11:15 Temp 36.6 Pulse 72 Resp 18 B/P (MAP) 198/92 (127) Pulse Ox 100 O2 Delivery Room Air Capillary Refill : ECG Comment Sinus rhythm with marked sinus arrhythmia, borderline left axis deviation, 70 bpm, QRS duration 86 MS, QTc 430 MS Departure Communication (PCP) Patient presents to ED from Dr. Mejia office for elevated blood pressure. History of hypertension, diabetes. She is currently asymptomatic. She states she did feel shaky today unclear if this was secondary to anxiety or her blood pressure. She does have a history of hypomagnesia and with her last blood work in March noted 1.4 magnesium. Currently taken 1 tablet 400 mg magnesium daily. Due to the shakiness and to rule out atypical chest pain CBC, CMP, troponin, magnesium was drawn. Differential diagnosis of uncontrolled hypertension, hypertensive emergency, hypertensive urgency, anxiety, kidney di sease, ACS, CHF. Patient CBC, CMP was otherwise unremarkable besides a magnesium of 1.3. Patient Was given 1 dose of oral magnesium. Patient blood pressure read 198/92. Normal kidney function. She is concern for bubbly urine. Urinalysis was negative for infection but did note protein. Discussed likely secondary to the diabetes versus the high blood pressure. Reassuring kidney function. She was given initially IV hydralazine 10mg and 10 mg of labetalol with the blood pressure as low as 171/89. Due to the continued elevated blood pressure without significant improvement of valsartan 320 mg, I discussed patient with primary care physician Dr. Raymond who is on-call for Dr. HEREDIA this week. Recommend starting amlodipine 10 mg and follow-up in the office this week with the nurse practitioners to recheck blood pressure. She was given a dose of amlodipine before discharge. Patient is currently asymptomatic with reassuring lab work patient will be discharged. Discussed importance of improving blood pressure to prevent CHF, coronary artery disease, stroke, kidney disease. She acknowledges. Return precautions were discussed with patient such as developing chest pain, shortness of breath, severe head pain. Impression Primary Impression: Uncontrolled hypertension Additional Impression: Hypomagnesemia Disposition: 01 HOME, SELF-CARE Condition: Stable Departure-Patient Inst. Decision time for Depature: 13:52 Referrals: RICARDO HEREDIA MD (PCP/Family) Primary Care Physician Patient Instructions: High Blood Pressure (DC) Scripts Amlodipine Besylate (Amlodipine Besylate) 10 Mg Tablet 10 MG PO DAILY, #30 TAB Prov: TIFFANY BUCK 05/21/22 TIFFANY BUCK May 21, 2022 11:31
[2022-05-21 11:53] LABS: BASOPHILS % (AUTO) 1 % (0-10); EOSINOPHILS # (AUTO) 0.1 10^3/uL (0.0-0.3); EOSINOPHILS % (AUTO) 1 % (0-10); HEMATOCRIT 34 % (35-52); HEMOGLOBIN 11.2 g/dL (11.5-16.0); LYMPHOCYTES # (AUTO) 1.4 10^3/uL (1.0-4.0); LYMPHOCYTES % (AUTO) 17 % (12-44); MEAN CORPUSCULAR HEMOGLOBIN 30 pg (25-34); MEAN CORPUSCULAR HGB CONC 33 g/dL (32-36); MEAN CORPUSCULAR VOLUME 91 fL (80-99); MEAN PLATELET VOLUME 11.1 fL (9.0-12.2); MONOCYTES # (AUTO) 0.4 10^3/uL (0.0-1.0); MONOCYTES % (AUTO) 5 % (0-12); NEUTROPHILS # (AUTO) 6.1 10^3/uL (1.8-7.8); NEUTROPHILS % (AUTO) 76 % (42-75); PLATELET COUNT 160 10^3/uL (130-400)
[2022-05-21 12:04] LABS: ALBUMIN 3.9 GM/DL (3.2-4.5); CHLORIDE 105 MMOL/L (98-107); POTASSIUM 4.1 MMOL/L (3.6-5.0); SODIUM 141 MMOL/L (135-145)
[2022-05-21 12:06] LABS: CALCIUM 9.8 MG/DL (8.5-10.1)
[2022-05-21 12:07] LABS: GLUCOSE 131 MG/DL (70-105); TOTAL PROTEIN 7.1 GM/DL (6.4-8.2)
[2022-05-21 12:08] LABS: CARBON DIOXIDE 22 MMOL/L (21-32)
[2022-05-21 12:09] LABS: BILIRUBIN,TOTAL 0.3 MG/DL (0.1-1.0)
[2022-05-21 12:10] LABS: ALKALINE PHOSPHATASE 76 U/L (40-136); CREATININE SERUM 0.85 MG/DL (0.60-1.30); GFR ESTIMATED 74
[2022-05-21 12:11] LABS: BUN/CREATININE RATIO 20
[2022-05-21 12:13] LABS: ALANINE AMINOTRANSFERASE 18 U/L (0-55)
[2022-05-21] MEDS ORDERED: hydrALAZINE (APESOLINE) 20 MG/ML VIAL IV ONE (12:15)
--- NOTE | 2022-05-21 12:38 | Diagnostic Imaging Report ---
EXAMINATION: Chest radiograph, portable AP view. DATE: 05/21/2022 11:58 AM. INDICATION: 71-year-old female, shortness of breath. COMPARISON: April 07, 2022. FINDINGS: There is cervical spine hardware. The heart size and mediastinal contours are unchanged. There is no identified pneumothorax. There is no large pleural effusion. There is no identified focal airspace consolidation. There is chondrocalcinosis. IMPRESSION: No identified acute cardiopulmonary abnormality. Dictated by: Dictated on workstation # [id number]
[2022-05-21] MEDS ORDERED: LABETALOL HCL 20 MG/4 ML VIAL IV ONE (13:00)
[2022-05-21 13:12] LABS: BILIRUBIN,URINE NEGATIVE (NEGATIVE); CLARITY,URINE CLEAR; COLOR,URINE YELLOW; GLUCOSE, URINE (UA) NEGATIVE (NEGATIVE); KETONES,URINE NEGATIVE (NEGATIVE); LEUKOCYTE ESTERASE ,URINE NEGATIVE (NEGATIVE); NITRITE,URINE NEGATIVE (NEGATIVE); PROTEIN,URINE 3+ (NEGATIVE)
[2022-05-21 13:27] LABS: AMORPHOUS SEDIMENT,UR RARE AMOR URATES /LPF; BACTERIA,URINE NEGATIVE /HPF; RBC,URINE RARE /HPF; WBC,URINE RARE /HPF
[2022-05-21] MEDS ORDERED: MAGNESIUM OXIDE (MAG-OX)400 MG TAB ONE (13:41)
[2022-05-21] MEDS ORDERED: MAGNESIUM OXIDE (MAG-OX)400 MG TAB PO ONE (13:45)
[2022-05-21] MEDS ORDERED: AMLO-251 PO (13:53)
[2022-05-21] MEDS ORDERED: amLODIPine 10 MG (NORVASC) TAB PO ONE (14:00)
[2022-05-21 14:10] VITALS: BP 170/75
== END 2022-05-21 14:10 | disposition home or self-care (01) ==
LOC: EDUNIT# 11:10 → ER 11:12
DX: I10 Essential (primary) hypertension (principal); E83.42 Hypomagnesemia; Z79.899 Other long term (current) drug therapy
CPT/HCPCS: 36415; 71045; 80053; 81000; 83735; 83880; 84484; 85025; 93005

== ENCOUNTER → 2022-05-21 | Outpatient (CLI) | payer MEDICARE, OTHER ==
[~2022-05-21] MED LIST changes: +AMLO-251 PO; +CEFU500T63 PO
== END ==
LOC: CARD 05-14 09:43
PROVIDERS: ATTEND Family Medicine
DX: R01.1 Cardiac murmur, unspecified (principal)
CPT/HCPCS: 93306

== ENCOUNTER 2022-05-26 16:24 | Emergency (ER) | payer MEDICARE, OTHER ==
[~2022-05-26] VITALS: Ht 170 cm; Wt 85.2 kg
[~2022-05-26 16:24] MED LIST changes: +AMLO-251 PO
--- NOTE | 2022-05-26 16:55 | ED Cardiac General ---
History of Present Illness General Stated Complaint: HEART PALPITATIONS Source: patient, old records History of Present Illness Date Seen by Provider: May 26, 2022 Time Seen by Provider: 16:41 Initial Comments PT ARRIVES VIA POV FROM HOME PT STATES "IT'S BEEN GOING ON FOR QUITE AWHILE"--AT LEAST 6 MONTHS OR MORE STATES "I GOT FLUSHED" "MY HEART STARTED BEATING FAST"--STATES SHE CHECKED HER PULSE AND IT WAS IN THE 80'S STATES "I JUST QUIVER AND I CAN'T MAKE MYSELF QUIT" "I JUST CAN'T RELAX" PT NEVER CHECKS HER BLOOD PRESSURE AT HOME NO CHEST PAIN NO SHORTNESS OF BREATH NO SWEATS NO DIZZINESS OR SYNCOPE NO NAUSEA/VOMITING NO CHANGE IN CHRONIC LEG SWELLING--STATES SHE WAS PRESCRIBED LASIX AND KCL, BUT THOUGHT THAT IT WAS CAUSING HER TO "BREAK OUT" SO SHE STOPPED TAKING IT IN DECEMBER. SHE STATES SHE BEEN PRESCRIBED ANXIETY MEDICATION IN THE PAST, BUT NEVER TOOK IT--"I WAS AFRAID TO" SHE HAD AN OUTPATIENT ECHOCARDIOGRAM ON SATURDAY FOR HEART MURMUR, AND BP WAS >200 AT THE TIME, SO PT WAS SENT TO ER SHE WAS SENT HOME WITH PRESCRIPTION FOR AMLODIPINE AND ADVISED TO FOLLOW UP WITH DR. HEREDIA NEXT WEEK ( SHE HAS BEEN OUT OF THE OFFICE THIS WEEK). SHE HAS NOT SEEN DR. HEREDIA SINCE LAST DECEMBER. 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 SHE HAS NOT CHECKED HER SUGAR TODAY. SHE WAS HERE 04/26/22 FOR NOSEBLEED, AND PT WAS NOTED TO BE HYPERTENSIVE AT THAT TIME, AND SHE HAD REPORTED AT THAT TIME THAT SHE WAS STARTED ON VALSARTAN AND LASIX + KCL 6 WEEKS PRIOR BUT SHE HAD STOPPED THE LASIX AND KCL ON HER OWN. SHE WAS ADVISED AT THAT TIME TO FOLLOW UP WITH DR. HEREDIA, WHICH SHE HAS NOT DONE. PCP: DR. HEREDIA Allergies and Home Medications Allergies Coded Allergies: No Known Drug Allergies (Verified , 10/20/08) Patient Home Medication List Home Medication List Reviewed: Yes Allopurinol (Allopurinol) 100 Mg Tablet, 100 MG PO DAILY PRN for GOUT PAIN, (Reported) Entered as Reported by: LINA GARCIA on 09/28/15 7295 Amlodipine Besylate (Amlodipine Besylate) 10 Mg Tablet, 10 MG PO DAILY Prescribed by: MELANI RODRIGUEZ on 05/21/22 1353 Aspirin (Aspirin Ec 81 Mg) 81 Mg Tabec, 81 MG PO HS, (Reported) Entered as Reported by: ENRIQUE JOAQUIN on 10/20/08 1420 Cefuroxime Axetil (Cefuroxime) 500 Mg Tablet, 500 MG PO BID Prescribed by: SIS OJEDA on 04/26/22 1137 Fosinopril Sodium (Fosinopril Sodium) 40 Mg Tablet, 40 MG PO DAILY, (Reported) Entered as Reported by: LINA GARCIA on 09/28/15 1400 Furosemide (Furosemide) 40 Mg Tablet, (Reported) Entered as Reported by: ZARA JUNG on 04/07/22 0504 Hydrochlorothiazide (Hctz) 25 Mg Tab, 25 MG PO DAILY, (Reported) Entered as Reported by: ENRIQUE JOAQUIN on 10/20/08 1419 Hydrocodone/Acetaminophen (Vicodin 5-300 mg Tablet) 1 Each Tablet, 1 EACH PO Q4H PRN for PAIN Prescribed by: ANDREA DAS on 09/28/152058 Insulin Detemir (Levemir Flextouch) 100 Unit/Ml (3 Ml) Insuln.pen, (Reported) Entered as Reported by: ZARA JUNG on 04/07/22 0504 Insulin Determir (Levemir) 1,000 Units/10 Ml Soln, 50 UNITS SQ HS, (Reported) Entered as Reported by: HARDEEP MULTANI on 09/22/15 1522 Insulin Determir (Levemir) 1,000 Units/10 Ml Soln, 23 UNITS SQ DAILY, (Reported) Entered as Reported by: HARDEEP MULTANI on 09/22/15 1522 Lorazepam (Ativan) 1 Mg Tablet, 1 MG PO TID PRN for ANXIETY Prescribed by: SIS OJEDA on 05/26/22 1829 Magnesium Oxide (Magnesium Oxide) 250 Mg Tablet, 250 MG PO QID Prescribed by: TIFFANY VICKERS on 04/07/22 0608 Metformin Hcl (Metformin 1000 Mg) 1,000 Mg Tablet, 1,000 MG PO BID, (Reported) Entered as Reported by: ENRIQUE JOAQUIN on 10/20/08 1420 Multivit-Min/FA/Herbal No.245 (Alive Women's Gummy Vitamins) 1 Each Tab.chew, 1 TAB PO DAILY, (Reported) Entered as Reported by: LINA GARCIA on 09/28/15 1400 [place]-3/Dha/Epa/Fish Oil (Fish Oil 1,000 mg Softgel) 1 Each Capsule, 1,000 MG PO DAILY, (Reported) Entered as Reported by: LINA GARCIA on 09/28/15 1400 Paroxetine HCl (Paroxetine HCl) 10 Mg Tablet, 10 MG PO DAILY, (Reported) Entered as Reported by: LINA GARCIA on 09/28/15 1400 Simvastatin (Zocor) 40 Mg Tablet, 40 MG PO DAILY, (Reported) Entered as Reported by: ENRIQUE JOAQUIN on 10/20/08 1419 Simvastatin (Simvastatin) 40 Mg Tablet, (Reported) Entered as Reported by: ZARA JUNG on 04/07/22503 Valsartan (Valsartan) 160 Mg Tablet, (Reported) Entered as Reported by: ZARA JUNG on 04/07/22503 [Fosinopril] , (Reported) Entered as Reported by: ZARA JUNG on 04/07/22503 [Potassium] , (Reported) Entered as Reported by: ZARA JUNG on 04/07/22503 Review of Systems Review of Systems Constitutional: see HPI EENTM: No Symptoms Reported Respiratory: No Symptoms Reported; Denies Shortness of Air Cardiovascular: See HPI; Denies Chest Pain; Edema; Denies Lightheadedness; Palpitations Gastrointestinal: No Symptoms Reported Genitourinary: No Symptoms Reported Musculoskeletal: other (CHRONIC LEG SWELLING) Skin: no symptoms reported Psychiatric/Neurological: See HPI, Anxiety Endocrine: No Symptoms Reported Hematologic/Lymphatic: No Symptoms Reported Past Hygxpdb-Vdcmnh-Nsrdty Hx Patient Social History Tobacco Use?: No Substance use?: No Alcohol Use?: No Immunizations Up To Date First/Initial COVID19 Vaccinat: 2020 Second COVID19 Vaccination [place]: 2020 Third COVID19 Vaccination Date: 2021 Past Medical History Surgery/Hospitalization HX: BILATERAL MASTECTOMY, NECK, APPY, PK, BREAST CA, LYMPHEDEMA, GOUT, DM2, HTN, GALLSTONES, RETINOPATHY, HEART MURMER Surgeries: Yes Appendectomy, Breast, Gallbladder, Orthopedic Respiratory: No Cardiac: Yes Heart Murmur, Hypertension Neurological: No 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 HIV/AIDS: No Genitourinary: No Gastrointestinal: Yes Gastroesophageal Reflux, Gall Bladder Disease Musculoskeletal: Yes (C-SPINE SURGERY) Arthritis, Gout Endocrine: Yes Diabetes, Insulin dep HEENT: Yes (RETINOPATHY) Cancer: Yes Breast Did You Recieve Any Treatments: Yes What Type of Treatment Did You: Surgical Intervention Psychosocial: Yes Anxiety Integumentary: No Blood Disorders: No Adverse Reaction/Blood Tranf: No Family Medical History Diabetes mellitus 19 MOTHER G8 SISTER FH: COPD (chronic obstructive pulmonary disease) 19 FATHER FH: breast cancer 19 MOTHER FH: stroke 19 MOTHER Hypertension 19 MOTHER G8 SISTER Myocardial infarction 19 MOTHER (open heart sx) G8 SISTER (open heart sx) Physical Exam Vital Signs Vital Signs - First Documented 05/26/22 17:05 Temp 37.0 Pulse 85 Resp 19 B/P (MAP) 213/77 (122) Pulse Ox 99 O2 Delivery Room Air Capillary Refill : Height, Weight, BMI Height: 5'7.00" Weight: 184lbs. 0.0oz. 83.099285mt; 29.00 BMI Method: General Appearance: Anxious, Obese, Other (PT IS EXTREMELY ANXIOUS AND TALKS NON-STOP. 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- XII Norm as Tested Skin: Normal Color, Warm/Dry Progress/Results/Core Measures Results/Orders Lab Results Laboratory Tests Test 05/26/22 16:45 Range/Units White Blood Count 6.9 4.3-11.0 10^3/uL Red Blood Count 3.79 L 3.80-5.11 10^6/uL Hemoglobin 11.2 L 11.5-16.0 g/dL Hematocrit 34 L 35-52 % Mean Corpuscular Volume 89 80-99 fL Mean Corpuscular Hemoglobin 30 25-34 pg Mean Corpuscular Hemoglobin Concent 33 32-36 g/dL Red Cell Distribution Width 13.3 10.0-14.5 % Platelet Count 188 130-400 10^3/uL Mean Platelet Volume 11.3 9.0-12.2 fL Immature Granulocyte % (Auto) 0 % Neutrophils (%) (Auto) 64 42-75 % Lymphocytes (%) (Auto) 27 12-44 % Monocytes (%) (Auto) 7 0-12 % Eosinophils (%) (Auto) 2 0-10 % Basophils (%) (Auto) 0 0-10 % Neutrophils # (Auto) 4.4 1.8-7.8 10^3/uL Lymphocytes # (Auto) 1.8 1.0-4.0 10^3/uL Monocytes # (Auto) 0.5 0.0-1.0 10^3/uL Eosinophils # (Auto) 0.2 0.0-0.3 10^3/uL Basophils # (Auto) 0.0 0.0-0.1 10^3/uL Immature Granulocyte # (Auto) 0.0 0.0-0.1 10^3/uL Prothrombin Time 13.6 12.2-14.7 SEC INR Comment 1.0 0.8-1.4 Activated Partial Thromboplast Time 40 H 24-35 SEC D-Dimer 0.75 H 0.00-0.49 UG/ML Sodium Level 140 135-145 MMOL/L Potassium Level 4.8 3.6-5.0 MMOL/L Chloride Level 105 98-107 MMOL/L Carbon Dioxide Level 21 21-32 MMOL/L Anion Gap 14 5-14 MMOL/L Blood Urea Nitrogen 32 H 7-18 MG/DL Creatinine 1.29 0.60-1.30 MG/DL Estimat Glomerular Filtration Rate 45 BUN/Creatinine Ratio 25 Glucose Level 287 H 70-105 MG/DL Calcium Level 9.9 8.5-10.1 MG/DL Corrected Calcium 9.7 8.5-10.1 MG/DL Magnesium Level 1.7 1.6-2.4 MG/DL Total Bilirubin 0.3 0.1-1.0 MG/DL Aspartate Amino Transf (AST/SGOT) 21 5-34 U/L Alanine Aminotransferase (ALT/SGPT) 21 0-55 U/L Alkaline Phosphatase 91 40-136 U/L Total Creatine Kinase 154 29-168 U/L Creatine Kinase MB 1.8 <6.6 NG/ML Myoglobin 45.9 10.0-92.0 NG/ML Troponin I < 0.028 <0.028 NG/ML B-Type Natriuretic Peptide 39.9 <100.0 PG/ML Total Protein 7.9 6.4-8.2 GM/DL Albumin 4.3 3.2-4.5 GM/DL TSH [place] Testing 2.40 0.35-4.94 UIU/ML My Orders Orders - SIS OJEDA DO Ed Iv/Invasive Line Start (05/26/22 16:40) Ekg Tracing (05/26/22 16:40) O2 (05/26/22 16:40) Monitor-Rhythm Ecg Trace Only (05/26/22 16:40) Chest 1 View, Ap/Pa Only (05/26/22 16:40) Bnp Murtaza (05/26/22 16:40) Cbc With Automated Diff (05/26/22 16:40) Comprehensive Metabolic Panel (05/26/22 16:40) Creatine Kinase (05/26/22 16:40) Creatine Kinase Mb (05/26/22 16:40) Fibrin Degradation Products (05/26/22 16:40) Magnesium (05/26/22 16:40) Protime With Inr (05/26/22 16:40) Partial Thromboplastin Time (05/26/22 16:40) Thyroid Analyzer (05/26/22 16:40) Myoglobin Serum (05/26/22 16:40) Troponin I [place] (05/26/22 16:40) Lorazepam Injection (Ativan Injection) (05/26/22 17:00) Labetalol Injection (Normodyne Injection (05/26/22 17:00) Ct Angio Chest W (R/O Pe) (05/26/22 17:34) Ed Iv/Invasive Line Start (05/26/22 17:35) Ns Iv 1000 Ml (Sodium Chloride 0.9%) (05/26/22 17:45) Iohexol Injection (Omnipaque 350 Mg/Ml 1 (05/26/22 17:45) Ns (Ivpb) (Sodium Chloride 0.9% Ivpb Bag (05/26/22 17:45) Medications Given in ED Vital Signs/I&O 05/26/22 05/26/22 17:05 18:38 Temp 37.0 Pulse 85 65 Resp 19 18 B/P (MAP) 213/77 (122) 137/66 Pulse Ox 99 94 O2 Delivery Room Air Room Air Progress Progress Note : Progress Note GIVEN: -ATIVAN -LABETALOL SIGNIFICANT IMPROVEMENT IN SYMPTOMS, AND BP DOWN TO 140'S/90, HR IN 70'S. NO LONGER FLUSHED AND PT IS MUCH CALMER. VITALS AT DISMISSAL 137/66, HR 68. PT IS SYMPTOM-FREE AT DISMISSAL. REVIEWED PRIOR RECORDS, INCLUDING ER VISITS, TESTS/PROCEDURES, ADMITS, H&P'S, CONSULTS AND DISCHARGE SUMMARIES DISCUSSED TEST RESULTS, ANTICIPATED COURSE, NEED FOR FOLLOW UP AND RETURN PRECAUTIONS PT FEELS COMFORTABLE GOING HOME Initial ECG Impression Date: May 26, 2022 Initial ECG Impression Time: 16:52 Initial ECG Rate: 86 Initial ECG Rhythm: Normal Sinus Initial ECG Impression: Nonspecific Changes Initial ECG Comparisson: Unchanged Comment INTERPRETED BY ME Diagnostic Imaging Comments CXR--PER RADIOLOGIST REPORT AT 1722 FINDINGS: Single view chest shows a normal heart, pleura and diaphragms. There is some background chronic parenchymal changes. No consolidations are seen. There is no effusion or pneumothorax. Soft tissues and bony thorax are grossly normal. IMPRESSION: Senescent chest with some chronic parenchymal changes but no evidence of acute cardiopulmonary disease. CT CHEST ANGIOGRAM--PER RADIOLOGIST REPORT AT 1824 INDICATION: Elevated D-dimer, palpitations. Patient has a history of breast cancer. FINDINGS: There are no intraluminal pulmonary arterial filling defects. There is no finding of pulmonary arterial embolus. Thoracic aorta patent, nonaneurysmal and nonacute. There is no pleural or pericardial effusion. There is a small hiatal hernia. No finding of pulmonary edema or consolidating pneumonia. No suspicious nodule or dominant lung mass. There is no thoracic lymphadenopathy or suspicious bony lesion. No chest wall mass or fluid collection. The visible upper abdomen shows no acute finding. IMPRESSION: No PE or acute aortic pathology. No finding of metastatic disease or other acute abnormality. Reviewed: Reviewed by Me Departure Impression Primary Impression: Uncontrolled hypertension Additional Impressions: Anxiety CHRONIC LEG EDEMA Diabetes mellitus, insulin dependent (IDDM), uncontrolled Disposition: 01 HOME, SELF-CARE Condition: Improved Departure-Patient Inst. Decision time for Depature: 18:26 Referrals: RICARDO HEREDIA MD (PCP/Family) Primary Care Physician Patient Instructions: Anxiety, Adult ED, Carb Counting for Adults With Diabetes, Controlling Your Blood Pressure Through Lifestyle, DASH Diet, High Blood Pressure (DC) Add. Discharge Instructions: CONTINUE YOUR AMLODIPINE AND VALSARTAN AND HCTZ PRESCRIBED, WELL ALL YOUR OTHER ROUTINE MEDICATIONS PRESCRIBED FOLLOW UP WITH DR. HEREDIA NEXT WEEK FOR FURTHER CARE--CALL ON SATURDAY TO SCHEDULE AN APPOINTMENT. Scripts Lorazepam (Ativan) 1 Mg Tablet 1 MG PO TID PRN for ANXIETY, #10 TAB Prov: SIS OJEDA DO 05/26/22 SIS OJEDA DO May 26, 2022 16:55
[2022-05-26] MEDS ORDERED: LABETALOL HCL 20 MG/4 ML VIAL IV ONE (17:00)
[2022-05-26] MEDS ORDERED: LORazepam INJ 2 MG/ML (ATIVAN) VIAL IVP ONE (17:00)
[2022-05-26 17:06] LABS: BASOPHILS % (AUTO) 0 % (0-10); EOSINOPHILS # (AUTO) 0.2 10^3/uL (0.0-0.3); EOSINOPHILS % (AUTO) 2 % (0-10); HEMATOCRIT 34 % (35-52); HEMOGLOBIN 11.2 g/dL (11.5-16.0); LYMPHOCYTES # (AUTO) 1.8 10^3/uL (1.0-4.0); LYMPHOCYTES % (AUTO) 27 % (12-44); MEAN CORPUSCULAR HEMOGLOBIN 30 pg (25-34); MEAN CORPUSCULAR HGB CONC 33 g/dL (32-36); MEAN CORPUSCULAR VOLUME 89 fL (80-99); MEAN PLATELET VOLUME 11.3 fL (9.0-12.2); MONOCYTES # (AUTO) 0.5 10^3/uL (0.0-1.0); MONOCYTES % (AUTO) 7 % (0-12); NEUTROPHILS # (AUTO) 4.4 10^3/uL (1.8-7.8); NEUTROPHILS % (AUTO) 64 % (42-75); PLATELET COUNT 188 10^3/uL (130-400); WHITE BLOOD COUNT 6.9 10^3/uL (4.3-11.0)
[2022-05-26 17:16] LABS: ALBUMIN 4.3 GM/DL (3.2-4.5); CHLORIDE 105 MMOL/L (98-107); POTASSIUM 4.8 MMOL/L (3.6-5.0); SODIUM 140 MMOL/L (135-145)
[2022-05-26 17:18] LABS: CALCIUM 9.9 MG/DL (8.5-10.1)
--- NOTE | 2022-05-26 17:18 | Diagnostic Imaging Report ---
INDICATION: 71-year-old female with heart palpitations. COMPARISONS: 05/21/2022. FINDINGS: Single view chest shows a normal heart, pleura and diaphragms. There is some background chronic parenchymal changes. No consolidations are seen. There is no effusion or pneumothorax. Soft tissues and bony thorax are grossly normal. IMPRESSION: Senescent chest with some chronic parenchymal changes but no evidence of acute cardiopulmonary disease. Dictated by: Dictated on workstation # [id number]
[2022-05-26 17:19] LABS: GLUCOSE 287 MG/DL (70-105); TOTAL PROTEIN 7.9 GM/DL (6.4-8.2)
[2022-05-26 17:20] LABS: CARBON DIOXIDE 21 MMOL/L (21-32); FIBRIN DEGRADATION PRODUCTS 0.75 UG/ML (0.00-0.49); PROTHROMBIN TIME PATIENT 13.6 SEC (12.2-14.7)
[2022-05-26 17:21] LABS: BILIRUBIN,TOTAL 0.3 MG/DL (0.1-1.0)
[2022-05-26 17:22] LABS: ALKALINE PHOSPHATASE 91 U/L (40-136); CREATININE SERUM 1.29 MG/DL (0.60-1.30); GFR ESTIMATED 45
[2022-05-26 17:23] LABS: BUN/CREATININE RATIO 25
[2022-05-26 17:25] LABS: ALANINE AMINOTRANSFERASE 21 U/L (0-55); MAGNESIUM 1.7 MG/DL (1.6-2.4)
[2022-05-26 17:26] LABS: CREATINE KINASE 154 U/L (29-168)
[2022-05-26 17:33] LABS: CREATINE KINASE MB 1.8 NG/ML (<6.6)
[2022-05-26] MEDS ORDERED: NS 100 ML (IVPB) BAG IV ONE (17:45)
[2022-05-26] MEDS ORDERED: NS IV 1000 ML 1,000 ML IV SCH (17:45)
[2022-05-26] MEDS ORDERED: IOHEXOL 350 MG/ML 100 ML (OMNIPAQUE 350) VIAL IV ONE (17:45)
--- NOTE | 2022-05-26 18:16 | Diagnostic Imaging Report ---
INDICATION: Elevated D-dimer, palpitations. Patient has a history of breast cancer. FINDINGS: There are no intraluminal pulmonary arterial filling defects. There is no finding of pulmonary arterial embolus. Thoracic aorta patent, nonaneurysmal and nonacute. There is no pleural or pericardial effusion. There is a small hiatal hernia. No finding of pulmonary edema or consolidating pneumonia. No suspicious nodule or dominant lung mass. There is no thoracic lymphadenopathy or suspicious bony lesion. No chest wall mass or fluid collection. The visible upper abdomen shows no acute finding. IMPRESSION: No PE or acute aortic pathology. No finding of metastatic disease or other acute abnormality. Dictated by: Dictated on workstation # [id number]
[2022-05-26] MEDS ORDERED: LORA-405 PO (18:29)
[2022-05-26 18:38] VITALS: BP 137/66
== END 2022-05-26 18:50 | disposition home or self-care (01) ==
LOC: EDUNIT# 16:24 → ER 16:27
DX: I10 Essential (primary) hypertension (principal); F41.9 Anxiety disorder, unspecified; R60.0 Localized edema; E11.319 Type 2 diabetes mellitus with unspecified diabetic retinopathy without macular edema; T50.996A Underdosing of other drugs, medicaments and biological substances, initial encounter; Z79.4 Long term (current) use of insulin; Z91.128 Patient's intentional underdosing of medication regimen for other reason; Z79.899 Other long term (current) drug therapy
CPT/HCPCS: 36415; 71045; 71275; 80053; 82550; 82553; 83735; 83874; 83880; 84443; 84484; 85025; 85379; 85610; 85730; 93005; 93041

== ENCOUNTER → 2022-06-22 | Outpatient (CLI) | payer MEDICARE, OTHER ==
[~2022-06-22] MED LIST changes: -INSU100I29; +INSU100I30; +LORA-405 PO
--- NOTE | 2022-06-22 12:11 | Diagnostic Imaging Report ---
HEEL, RIGHT, 2 VIEWS INDICATION: Pain and swelling COMPARISON: None available. TECHNIQUE: 2 views of the right calcaneus. FINDINGS: Marked thickening of the distal Achilles shadows with multiple areas of intrinsic mineralization that is most indicative of calcific tendinosis. There is likely superimposed tear given the soft tissue stranding in the pre-Achilles fat pad. Large plantar and dorsal calcaneal spurs. No acute fracture. Severe vascular calcifications. Degenerative arthritis is noted at the talonavicular and talar cuneiform articulations. IMPRESSION: 1. Calcific tendinitis of the Achilles with probable superimposed tear. MRI of the ankle without contrast could be performed for more sensitive assessment for tendon tear. Dictated by: Dictated on workstation # [id number]
--- NOTE | 2022-06-22 12:40 | Diagnostic Imaging Report ---
US RIGHT LOW EXT NONVASC [id number] INDICATION: Posterior ankle pain COMPARISON: None available. TECHNIQUE: Targeted ultrasound imaging of the posterior lower leg was performed. FINDINGS: A moderate amount of subcutaneous edema is present. A normal-appearing Achilles cannot be identified on this exam. No loculated fluid collection that would suggest hematoma. IMPRESSION: 1. This exam cannot exclude tear of Achilles tendon, as it is not adequately imaged. 2. MRI of the ankle without contrast would provide more sensitive assessment. Dictated by: Dictated on workstation # [id number]
== END ==
LOC: RAD 11:22
PROVIDERS: ATTEND Nurse Practitioner Family
DX: M76.61 Achilles tendinitis, right leg (principal); M25.561 Pain in right knee
CPT/HCPCS: 73650; 76881

== ENCOUNTER → 2022-06-26 | Outpatient (CLI) | payer MEDICARE, OTHER | LOC: CARD 09:23 | PROVIDERS: ATTEND Internal Medicine | DX: R00.2 Palpitations (principal) | CPT/HCPCS: 93225; 93226 ==

== ENCOUNTER 2022-07-05 05:29 | Outpatient (CLI) | payer MEDICARE, OTHER ==
[~2022-07-05] VITALS: Ht 165.1 cm; Wt 82.3 kg
[2022-07-05] MEDS ORDERED: UBID100C17 PO (14:08)
[2022-07-05] MEDS ORDERED: MV-M1TAB57 PO (14:08)
[2022-07-05] MEDS ORDERED: AMLO-251 PO (14:08)
[2022-07-05] MEDS ORDERED: MAGN500T PO (14:08)
[2022-07-05] MEDS ORDERED: SIMV40TA25 PO (14:08)
[2022-07-05] MEDS ORDERED: ESCI-2 PO (14:08)
[2022-07-05] MEDS ORDERED: METF-399 PO (14:08)
[2022-07-05] MEDS ORDERED: IRBE300T17 PO (14:08)
[2022-07-05] MEDS ORDERED: HYDR25TA4 PO (14:08)
== END 2022-07-05 14:11 | disposition home or self-care (01) ==
LOC: PREOP 05:29
PROVIDERS: ATTEND Internal Medicine
DX: Z01.818 Encounter for other preprocedural examination (principal)

== ENCOUNTER 2022-07-13 08:20 | Day surgery (SDC) | payer MEDICARE, OTHER ==
--- NOTE | 2022-07-04 15:18 | HISTORY AND PHYSICAL ---
PANENDOSCOPY SUMMARY HISTORY OF PRESENT ILLNESS: The patient is a 72-year-old white female who was noted to have a 2.7 gram drop in her hemoglobin from 12.8 to 10.1 compared to six months earlier. She reports that she had a couple episodes of epistaxis, one that caused her to go to the emergency room, where they were able to get it under control in mid May. At that time, her hemoglobin was 11.2. When she was seen in our office several weeks later, she was down to 10.1. She reports fatigue, but is not noting any GI symptoms. Denying dysphagia, reflux symptoms, abdominal pain, melena or any significant bright red blood per rectum. Occasionally, she will note blood on the toilet paper when she wipes that she has attributed to hemorrhoids, nothing that she has seen mixed in with stool. She had been taking a baby aspirin, but discontinued this following her emergency room visit. It was for primary prevention. PAST MEDICAL HISTORY: Significant for type 2 diabetes insulin requiring, hypertension and hyperlipidemia with no known history for vascular disease. She did have questions about an echo that had been done by another provider. We had a copy of it, it was unremarkable except pulmonary artery pressure was estimated at 45-50 mmHg with normal right atrial and right ventricular chamber dimensions and function. She has had no chest pain, shortness of breath, lower extremity swelling or discomfort. PHYSICAL EXAMINATION: GENERAL: Reveals a white female, appeared to be in no acute distress. VITAL SIGNS: Her weight was down 4 pounds to 181, blood pressure 154/64. HEENT: Except for mild pallor unremarkable. Sclerae nonicteric. CHEST: Clear. CARDIOVASCULAR: Reveals regular rate and rhythm with a soft I to II/ systolic ejection murmur heard best at left lower sternal border and second right intercostal space. No diastolic murmurs noted. No S3 or S4 noted. ABDOMEN: Soft, supple without mass, organomegaly, or tenderness. EXTREMITIES: Revealed no cyanosis, clubbing or edema. ASSESSMENT AND PLAN: 1. The patient is being set up for anemia considering recent aspirin usage, occasional nonsteroidal usage, increasing her risk for silent peptic ulcer disease. Prep instructions were given and questions were answered. We will cut her evening Levemir to 30 units from 48 units just the night before her colonoscopy and have her hold her morning dose of Levemir until she gets home. 2. Isolated elevated pulmonic pressure as estimated on an echo. We did discuss commonly this was an issue with how the measurement was obtained. I will review the films and see if they are overestimating her pulmonary pressure considering her lack of shortness of breath and no evidence for right heart failure on the echo or by exam. Job ID: [id number] DocumentID: [id number] Dictated Date: 07/04/2022 14:15:40 Linter Drier Operator Date: 07/04/2022 14:58:00 Dictated By: MORENA HENDRICKSON MD
[~2022-07-13] VITALS: Ht 165 cm; Wt 82.3 kg
[~2022-07-13 08:20] MED LIST changes: +ESCI-2 PO; +HYDR25TA4 PO; +IRBE300T17 PO; +MAGN500T PO; +METF-399 PO; +MV-M1TAB57 PO; +SIMV40TA25 PO; +UBID100C17 PO
[2022-07-13] MEDS ORDERED: LACTATED RINGERS 1,000 ML IV STA (08:29)
[2022-07-13] MEDS ORDERED: HURRICAINE EXT TUBE (BENZOCAINE) XX PRN (08:30)
--- NOTE | 2022-07-13 08:34 | Pre-Op Note & Conscious Sedat ---
Pre-Operative Progress Note Date H&P Reviewed: July 13, 2022 Time H&P Reviewed: 08:33 History & Physical: H&P Reviewed, Patient Examed, No changes noted Pre-Op Diagnosis: Fe deficiency anemia rectal bleeding Moderate Sedation PreProcedure ASA Score 2 Airway Lungs Heart ASA score ASA 1: a normal healthy patient ASA 2: a patient with a mild systemic disease (mid diabetes, controlled hypertension, obesity ASA 3: a patient with a severe systemic disease that limits activity (angina, COPD, prior Myocardial infarction) ASA 4: a patient with an incapacitating disease that is a constant threat to life (CHF, renal failure) ASA 5: a moribund patient not expected to survive 24 hrs. (ruptured aneurysm) ASA 6: a declared brain- patient whose organs are being harvested. For emergent operations, add the letter E after the classification Mallampati Classification Grade 2 Sedation Plan Analgesia, Amnesia, Plan communicated to team members, Discussed options with patient/fam, Discussed risks with patient/fam The patient is an appropriate candidate to undergo the planned procedure, sedation, and anesthesia. The patient immediately re-assessed prior to indication. MORENA HENDRICKSON MD July 13, 2022 08:34
[2022-07-13 09:10] VITALS: BP 183/79
[2022-07-13] MEDS ORDERED: PROPOFOL INJECTION 50 ML IV ONE ×2 (09:36→09:57)
[2022-07-13] MEDS ORDERED: MIDAZOLAM 2 MG/2 ML (VERSED) VIAL ONE (09:36)
[2022-07-13 10:25] VITALS: BP 150/67
--- NOTE | 2022-07-13 10:29 | Progress Note-Post Operative ---
Post-Procedure Note Physician (s)/Stock Control Supervisor (s) Physician MORENA HENDRICKSON MD Pre-Procedure Diagnosis Pre-Procedure Diagnosis: Fe deficiency anemia rectal bleeding Post-Procedure Diagnosis Post-operative diagnosis: The endoscope was inserted into the oral cavity and under direct visualization the esophagus is intubated. The endoscope was passed down the esophagus to stomach and the second portion of the duodenum. A careful inspection was made as the endoscope was withdrawn. Findings: Posterior pharynx epiglottis arytenoid aperture and true and false vocal folds were unremarkable on visual inspection. Proximal mid and distal esophagus was unremarkable. There is mild erythema at the Z-line with no evidence for erosive esophagitis no evidence to suggest Salter's esophagus. A small sliding hiatal hernia is noted. The cardia of the stomach was unremarkable. A 8 mm sessile polyp was noted in the fundus it did not have the typical features of a fundal polyp could not rule out an adenoma polyp was biopsied cauterized and submitted for histopathology. There was continued oozing of blood post polypectomy so Endo Clip was deployed with cessation of bleeding estimated 5 cc blood loss. The remainder of the fundus and antrum of the stomach were unremarkable. Antral biopsy was obtained for Helicobacter as patient did have evidence for duodenitis involving the posterior duodenal bulb and the proximal second portion of the duodenum. Remainder of the duodenum was unremarkable. we then proceeded with colonoscopy. Prior to undergoing colonoscopy digital rectal evaluation was performed. Anal sphincter tone was normal and the perianal reflexes intact. There is a lot of redundancy to the perianal skin folds and findings suggesting previous hemorrhoids have undergone fibrosis. There was no evidence for stricture formation and no abnormalities noted on digital inspection anal canal or distal rectal vault. The colonoscope was then inserted into the rectum and under direct visualization advanced to the cecum. The cecum was identified by indication of the Ileocecal valve and cecal strap. Photographic documentation was obtained. Careful inspection was made as the Colonoscope was withdrawn. Quality prep was fair. Findings there are several grade 1 internal hemorrhoid complexes noted the rectum was otherwise unremarkable. The sigmoid colon was normal with no evidence for neoplasia or diverticular disease. The descending colon and splenic flexure were unremarkable. Present the distal transverse colon was a 4 mm sessile adenomatous appearing polyp was biopsied and cauterized with no subsequent blood loss. the remainder of the transverse colon hepatic flexure ascending colon and cecum were unremarkable. Assessment 1. One 4 mm polyp was removed via hot forceps from the distal transverse colon. Several grade 1 internal hemorrhoid complexes were noted with otherwise normal colonoscopy to cecum. As long as there are no surprises on histopathology we will advocate consideration for repeat screening colonoscopy in 10 years. MORENA HENDRICKSON MD July 13, 2022 10:29
[2022-07-13 10:30] VITALS: BP 142/65
[2022-07-13 10:35] VITALS: BP 142/65
--- NOTE | 2022-07-13 11:05 | Anesthesia-General Post-Op ---
MAC Patient Condition Mental Status/LOC: Same as Preop Cardiovascular: Satisfactory Nausea/Vomiting: Absent Respiratory: Satisfactory Pain: Controlled Complications: Absent Post Op Complications Complications None Follow Up Care/Instructions Patient Instructions None needed. Anesthesiology Discharge Order Discharge Order Patient is doing well, no complaints, stable vital signs, no apparent adverse anesthesia problems. No complications reported per nursing. ASHA MASON CRNA July 13, 2022 11:05
[2022-07-13 11:15] VITALS: BP 142/65
== END 2022-07-13 11:15 | disposition home or self-care (01) ==
LOC: ENDO 08:20
PROVIDERS: ATTEND Internal Medicine
DX: D12.3 Benign neoplasm of transverse colon (principal); K31.7 Polyp of stomach and duodenum; K62.5 Hemorrhage of anus and rectum; K44.9 Diaphragmatic hernia without obstruction or gangrene; K64.0 First degree hemorrhoids; D50.9 Iron deficiency anemia, unspecified
CPT/HCPCS: 88305

== ENCOUNTER 2023-01-07 10:19 | Outpatient (RCR) | payer MEDICARE, OTHER | END 2023-01-08 | disposition home or self-care (01) | PROVIDERS: ATTEND Nurse Practitioner Family | DX: S86.011D Strain of right Achilles tendon, subsequent encounter (principal) ==

== ENCOUNTER 2023-01-22 12:43 | Outpatient (RCR) | payer MEDICARE, OTHER | END 2023-01-22 15:10 | disposition home or self-care (01) | PROVIDERS: ATTEND Nurse Practitioner Family | DX: S86.011D Strain of right Achilles tendon, subsequent encounter (principal) ==